=== PATIENT | male | born 1960 | race Caucasian/White ===

== ENCOUNTER → 2020-01-14 09:50 | Outpatient (CLI) | payer OTHER, SELFPAY ==
--- NOTE | ~2020-01-14 | US_ITS ---
EXAMINATION: US abdomen complete EXAM DATE: 01/14/2020 10:23 INDICATION: R10.12 - Left upper quadrant pain . TECHNIQUE: Multiple grayscale and Doppler images of the complete abdomen were obtained (by a technolo gist who performed the scan) and subsequently reviewed. There is no prior study for comparison. FINDINGS: The abdominal aorta is normal in caliber. Visualized portion IVC is patent. The pancreatic head a nd body are normal in appearance. The pancreatic tail is not visualized. The liver has normal echogenicity and contour. There are no focal liver lesions identified. There is no evidence of intrahepatic biliary duct dilation. Portal venous flow was seen in the hepatopedal , normal direction and has normal Doppler waveform. Common bile duct measures 4 mm, which is normal. The gallbladder wall is normal in thickness, with ex pected amount of distention. No sonographic evidence of pericholecystic fluid. No cholelithiasis. T here is a 5 mm gallbladder polyp not likely clinically significant. Technologist performing exam rep orts patient did not demonstrate sonographic Coulter's sign. Please note that this sign is less relia ble in patients who have received pain medication. Right kidney: There is normal contour and echogenicity. It measures 10.3 x 4.8 x 4.2 centimeters. There are no focal renal lesions identified. There is no hydronephrosis. Left kidney: There is normal contour and echogenicity. It measures 10.9 x 5.6 x 4.7 centimeters. T here are no focal renal lesions identified. There is no hydronephrosis. The spleen measures 9.8 centimeters and is morphologically normal. IMPRESSION: 1. Small gallbladder polyp not likely clinically significant. Reviewed, dictated and finalized at location B. UTIVE PASTRY CHEF
== END ==
PROVIDERS: Visit Provider Nurse Practitioner Family
DX: R10.12 Left upper quadrant pain (principal); K82.4 Cholesterolosis of gallbladder
CPT/HCPCS: 76700

== ENCOUNTER 2020-01-31 08:30 | Outpatient (RCR) | payer OTHER, SELFPAY ==
--- NOTE | 2019-12-24 10:55 | PTOPEVAL ---
Thank you for referring Sean Wagner to [facility].? The patient is scheduled to be seen for therapy? 2 x/week for 5 weeks. Please review, sign, date and return this plan of care LANEY. I agree with and certify that the following plan of care is medically necessary. Referring Physician Date Attending Provider: Duane Smith MD *PT Outpatient Evaluation Start: 12/24/19 09:51 Freq: Status: Active Protocol: Document 12/24/19 09:49 NOHELIA (Rec: 12/24/19 10:42 NOHELIA [id number]) Therapy Assessment Status Assessment Status Assessment Status Evaluation Outpatient Past Medical History Past Medical History Source of Past Medical History Patient,Recalled from Previous Visit, Confirmed with Patient /Family Cardiovascular History Hx Hypercholesterolemia Yes Hx Hypertension Yes Gastrointestinal History Hx Gastroesophageal Reflux Disease Yes Endocrine History Hx Diabetes Yes Evaluation Information Problem Diagnosis left shoulder pain Onset Sep 2019 Cause none Subjective Information Reports he has been having Query Text:As Reported By Patient/ left shoulder pain since Family September. He reports the pain started in the left shoulder and progressed into the left arm. HE reports tingling into the lateral and vegetable thinner upper arm into the left forearm region. Prolonged sitting use of computer or driving, arm hanging at rest, lifting and carrying objects. Denies increased pain with reaching motion. Denies pain with sleeping. He received an injection of his shoulder with improved symptoms. He does not perform a regular fitness program or stretching program. He will occasionally walk the dogs. Diagnostic Tests X-Rays For This Problem Yes Previous Treatments Previous Treatments For This Problem no Pain Assessment Timing of Pain Assessment Timing of Pain Assessment Assessment Pain Scale Pain Scale Used Numeric (1 - 10) Self Report Pain Assessment Left Shoulder(s) Reported Pain Level 5 Pain Description Aching,Radiating,Tingling Pain Frequency
--- NOTE | 2020-01-11 10:06 | PCPTNOTE ---
Patient called & cancelled scheduled appointment this date due to possible covid exposure.
--- NOTE | 2020-01-23 11:14 | PCPTNOTE ---
Patient called & cancelled scheduled appointment this date due to no reason provided. His re-eval has been rescheduled for 01/31/20.
--- NOTE | 2020-01-31 09:24 | PTOPEVAL ---
Thank you for referring Sean Wagner to [facility]. Pt has been seen for 7 therapy visits to address his shoulder impairments. He is indep with his HEP at this time. He verbalizes understanding of proper UE position with daily task. He has reached maximal potential with skilled therapy services at this time. He has achieved 90% of his therapy goals at this time. DC skilled therapy services. Please review, sign, date and return this plan of care LANEY. I agree with and certify that the following plan of care is medically necessary. Referring Physician Date Attending Provider: Duane Smith MD Referring Provider: *PT Outpatient Evaluation Start: 12/24/19 09:51 Freq: Status: Active Protocol: Document 01/31/20 08:31 NOHELIA (Rec: 01/31/20 09:12 [facility] [id number]) Therapy Assessment Status Assessment Status Assessment Status Re-evaluation/Discharge Note Evaluation Information Problem Diagnosis left shoulder pain Onset Sep 2019 Cause none Additional Evaluation Detail Reports he has been having left shoulder pain since September. Subjective Information He reports improved and Query Text:As Reported By Patient/ function of his left UE. Randy Family any numbness or tingling of left UE/hand region. Reports improved cynthia wtih driving. Cont to have discomfort with prolonged sitting at the computer for >30 min, but the intensity is not as bad. Denies increased pain with reaching motion. Denies pain with sleeping. He is performing his HEP without difficulty. Pain Assessment Timing of Pain Assessment Timing of Pain Assessment Re-assessment Pain Scale Pain Scale Used Numeric (1 - 10) Self Report Pain Assessment Left Shoulder(s) Reported Pain Level 0 Pain Description Aching Lowest Pain Intensity 0 Greatest Pain Intensity 1 Pain Score Pain Score 0: Self Report Interventions Used Pain Relief Interventions Used By Exercise Patient Upper Extremity Range of Motion Scapular/ Shoulder Range of Motion Right Scapular: Retraction Normal Scapular: Protraction Normal Scapular Downward Rotation Normal Scapular Upward Rotation Normal Shoulder Flexion - Active 160 Shoulder Extension - Active 50 Shoulder Abduction - Active 162 Shoulder Medial Rotation - Active 73 Shoulder Medi
== END 2020-03-10 08:08 | disposition home or self-care (01) ==
LOC: ANHPT 08:30
PROVIDERS: PCP Family Medicine; Visit Provider Orthopaedic Surgery
DX: M75.42 Impingement syndrome of left shoulder (principal)
CPT/HCPCS: 97035; 97110; 97140; 97161

== ENCOUNTER 2020-05-05 13:56 | Outpatient (CLI) | payer OTHER, SELFPAY | END 2020-05-05 13:57 | disposition home or self-care (01) | LOC: ANHCOVIDVC 13:56 | PROVIDERS: PCP Family Medicine | DX: Z23 Encounter for immunization (principal) | CPT/HCPCS: 0001A; 91300 ==

== ENCOUNTER 2020-05-26 13:57 | Outpatient (CLI) | payer OTHER, SELFPAY | END 2020-05-26 13:58 | disposition home or self-care (01) | LOC: ANHCOVIDVC 13:57 | PROVIDERS: PCP Family Medicine | DX: Z23 Encounter for immunization (principal) | CPT/HCPCS: 0002A; 91300 ==

== ENCOUNTER → 2020-07-03 11:20 | Outpatient (CLI) | payer OTHER, SELFPAY ==
--- NOTE | ~2020-07-03 | XR_ITS ---
XR lumbar spine 2-3V DATE: 07/03/2020 11:43 INDICATION: Low back pain TECHNIQUE: AP, lateral, coned lateral lumbosacral standing views COMPARISON: None FINDINGS: There is minimal anterolisthesis at L4-5 due to degenerative change at the apophyseal joint s. There is mild to moderate degenerative disease at L1-2, L4-5 and L5-S1. No fracture or bone destruction is evident. The included T11-L5 pedicles are intact. The sacroiliac joints appear normal. Abdominal aortic calcification is noted. IMPRESSION: Mild/moderate degenerative disc disease Reviewed, dictated and finalized at location A.
== END ==
PROVIDERS: PCP Family Medicine; Visit Provider Physician Assistant
DX: M54.5 Low back pain (principal); M51.36 Other intervertebral disc degeneration, lumbar region
CPT/HCPCS: 72100

== ENCOUNTER → 2020-07-05 01:04 | Outpatient (CLI) | payer OTHER, SELFPAY ==
[2020-07-05 19:44] LABS: SARS-CoV-2 RNA PCR Negative
== END ==
PROVIDERS: PCP Family Medicine; Visit Provider Internal Medicine Gastroenterology
DX: Z01.812 Encounter for preprocedural laboratory examination (principal); Z20.822 Contact with and (suspected) exposure to COVID-19
CPT/HCPCS: C9803; U0003; U0005

== ENCOUNTER 2020-07-09 02:50 | Day surgery (SDC) | payer OTHER, SELFPAY ==
[2020-07-02 10:18] VITALS: BMI 31.9
--- NOTE | 2020-07-08 15:34 | WPDANESEPPF ---
Anes - Initial Pre Proc Eval Procedure: Operation Date: 07/09/20 08:00 Proposed Procedures p Screening Colonoscopy - Rafita Mcknight MD Date/Time: 07/08/20 15:34 Surgeon: Rafita Mcknight MD Pre Op Diagnosis: neoplasm screening, family hx colon CA Patient Data Age: 60 Gender: M Height: 1.8 m Weight: 104 kg Allergies Allergy/AdvReac Type Severity Reaction Status Date / Time SALLY Inhibitors Allergy Unknown Unknown Verified 07/09/20 06:51 atenolol Allergy Unknown cough Verified 07/09/20 06:51 chlorthalidone [Tenoretic] Allergy Unknown cough Verified 07/09/20 06:51 Home Medications Medication Instructions Recorded Confirmed Type aspirin 81 mg tablet,delayed 81 mg PO DAILY 01/23/19 07/03/20 History release multivitamin 1 tablet PO DAILY 01/23/19 07/03/20 History indapamide 1.25 mg tablet See Rx Instructions .ROUTE 11/02/19 07/03/20 Rx .COMPLEX #90 tablet valsartan 80 mg tablet See Rx Instructions .ROUTE 11/02/19 07/03/20 Rx .COMPLEX #90 tablet blood sugar diagnostic #100 ea 02/25/20 07/03/20 Rx lancets 30 gauge #100 ea 02/25/20 07/03/20 Rx simvastatin 40 mg tablet See Rx Instructions .ROUTE 03/24/20 07/03/20 Rx .COMPLEX #90 tablet dulaglutide 1.5 mg/0.5 mL See Rx Instructions .ROUTE 03/31/20 07/03/20 Rx subcutaneous pen injector .COMPLEX #6 syringe metformin 500 mg tablet,extended 2,000 mg PO DAILY #360 tablet 04/09/20 07/03/20 Rx release 24 hr pen needle, diabetic 29 gauge x #100 ea 04/09/20 07/03/20 Rx 1/2 insulin glargine U-300 conc 300 15 unit SUBCUT DAILY #4.5 ml 05/14/20 07/03/20 Rx unit/mL (1.5 mL) subcutaneous pen pioglitazone 30 mg tablet 30 mg PO DAILY #90 tablet 05/16/20 07/03/20 Rx methylprednisolone 4 mg tablets in See Rx Instructions PO PER PKG DIR 07/03/20 07/03/20 Rx a dose pack #21 ea Patient hx anesthesia problems: none Family hx anesthesia problems: none PMFSH Past Medical History Medical History BMI 30.0-30.9,adult Cataract right eye Fatty liver GERD (gastroesophageal reflux disease) Hemoglobin A1c between 7.0% and 9.0% A1C 09/20/19 was 7.3 HLD (hyperlipidemia) HTN (hypertension), benign Obesity Subacromial impingement of left shoulder Type 2 diabetes mellitus with hyperglycemia Surgical History Surgical History Status post arthroscopy of left knee Dr. Smith Status post arthroscopy of right knee Dr. Smith Family History Family History Mother Diabetes mellitus Sibling Diabetes mellitus Hypertension Sibling Hypertension Family history of diabetes mellitus in first degree relative Mother Family history of diabetes mellitus in first degree relative Social History Social History Smoking status: Never smoker Second hand tobacco smoke exposure: No Alcohol intake: current Drinks per week: 1 Substance use: never Substance use type: does not use Living arrangements: with family Gender identity (if verbalized by the patient): Male Spiritual care concerns: No Anes - Eval Final PreProcedure Day of Procedure 07/08/20 15:34 Patient weight: obese Heart: regular rate and rhythm Lungs: clear to auscultation and normal air movement Airway: Mallampati scale class II Neurological: alert and oriented Last oral intake: >/= 8 hours ASA classification: III Emergent: no Anesthetic plan: proceed Anesthesia type and monitoring: general GIVS Informed Consent: The patient's anesthetic plan and its attendant risks and benefits were discussed with the patient/family/POA. Questions were solicited and answers provided to the satisfaction of the patient/family/POA.
[2020-07-09 06:54] VITALS: BP 136/84; PULSE 78; RESP 20; TEMP 36.3; O2SAT 96
--- NOTE | 2020-07-09 06:57 | PM.HPGS ---
History of Present Illness History of Present Illness Consent: Risks, benefits, and alternatives have been discussed and questions answered. Patient agrees to proceed with procedure. Chief complaint: neoplasm screening, family hx colon CA Narrative: Sean Wagner is a 60 year old male here for colon cancer screening. He does have a family history of colon cancer Review of Systems Review of Systems: All systems reviewed & are unremarkable except as noted in HPI and below PMFSH Past Medical History Medical History BMI 30.0-30.9,adult Cataract right eye Fatty liver GERD (gastroesophageal reflux disease) Hemoglobin A1c between 7.0% and 9.0% A1C 09/20/19 was 7.3 HLD (hyperlipidemia) HTN (hypertension), benign Obesity Subacromial impingement of left shoulder Type 2 diabetes mellitus with hyperglycemia Surgical History Surgical History Status post arthroscopy of left knee Dr. Smith Status post arthroscopy of right knee Dr. Smith Family History Family History Mother Diabetes mellitus Sibling Diabetes mellitus Hypertension Sibling Hypertension Family history of diabetes mellitus in first degree relative Mother Family history of diabetes mellitus in first degree relative Social History Social History Smoking status: Never smoker Second hand tobacco smoke exposure: No Alcohol intake: current Drinks per week: 1 Substance use: never Substance use type: does not use Living arrangements: with family Gender identity (if verbalized by the patient): Male Spiritual care concerns: No Meds Home Medications and Allergies Home Medications Medication Instructions Recorded Confirmed Type aspirin 81 mg tablet,delayed 81 mg PO DAILY 01/23/19 07/03/20 History release multivitamin 1 tablet PO DAILY 01/23/19 07/03/20 History indapamide 1.25 mg tablet See Rx Instructions .ROUTE 11/02/19 07/03/20 Rx .COMPLEX #90 tablet valsartan 80 mg tablet See Rx Instructions .ROUTE 11/02/19 07/03/20 Rx .COMPLEX #90 tablet blood sugar diagnostic #100 ea 02/25/20 07/03/20 Rx lancets 30 gauge #100 ea 02/25/20 07/03/20 Rx simvastatin 40 mg tablet See Rx Instructions .ROUTE 03/24/20 07/03/20 Rx .COMPLEX #90 tablet dulaglutide 1.5 mg/0.5 mL See Rx Instructions .ROUTE 03/31/20 07/03/20 Rx subcutaneous pen injector .COMPLEX #6 syringe metformin 500 mg tablet,extended 2,000 mg PO DAILY #360 tablet 04/09/20 07/03/20 Rx release 24 hr pen needle, diabetic 29 gauge x #100 ea 04/09/20 07/03/20 Rx 1/2 insulin glargine U-300 conc 300 15 unit SUBCUT DAILY #4.5 ml 05/14/20 07/03/20 Rx unit/mL (1.5 mL) subcutaneous pen pioglitazone 30 mg tablet 30 mg PO DAILY #90 tablet 05/16/20 07/03/20 Rx methylprednisolone 4 mg tablets in See Rx Instructions PO PER PKG DIR 07/03/20 07/03/20 Rx a dose pack #21 ea Allergies Allergy/AdvReac Type Severity Reaction Status Date / Time SALLY Inhibitors Allergy Unknown Unknown Verified 07/09/20 06:51 atenolol Allergy Unknown cough Verified 07/09/20 06:51 chlorthalidone [Tenoretic] Allergy Unknown cough Verified 07/09/20 06:51 Vital Signs Vital Signs - 24 hr 07/09/20 06:54 Temperature 36.3 C L Pulse Rate 78 Respiratory Rate 20 Blood Pressure 136/84 Pulse Oximetry 96 Exam Resp: Auscultation: clear to auscultation bilaterally Cardio: Rate: regular rate Rhythm: regular rhythm GI: GI Palp: Yes Soft to palpation and No Tenderness to palpation present (GI) Assessment and Plan Assessment and plan (1) Colon cancer screening: Code(s): Z12.11 - Encounter for screening for malignant neoplasm of colon Status: Acute Assessment and Plan: Colonoscopy with possible biopsy or polypectomy or cautery or injection of substances.
[2020-07-09 07:08] LABS: Glucose Point of Care 132 mg/dl (65-105)
[2020-07-09] MEDS: LACTATED RINGERS 1,000 ML 150 ML IV CONT (07:08)
[2020-07-09 08:10] VITALS: BP 121/88; PULSE 72; RESP 21; O2SAT 100
[2020-07-09 08:20] VITALS: BP 126/78; PULSE 70; RESP 17; O2SAT 99
[2020-07-09 08:30] VITALS: BP 126/84; PULSE 68; RESP 23; O2SAT 99
== END 2020-07-09 08:42 | disposition home or self-care (01) ==
PROVIDERS: PCP Family Medicine; Visit Provider Internal Medicine Gastroenterology
PROC: 0DJD8ZZ Inspection of Lower Intestinal Tract, Via Natural or Artificial Opening Endoscopic (ICD-10-PCS; CPT 45378; principal; 2020-07-09 08:00)
DX: Z12.11 Encounter for screening for malignant neoplasm of colon (principal); K57.30 Diverticulosis of large intestine without perforation or abscess without bleeding; Z80.0 Family history of malignant neoplasm of digestive organs; I10 Essential (primary) hypertension; E11.9 Type 2 diabetes mellitus without complications; E78.5 Hyperlipidemia, unspecified; K21.9 Gastro-esophageal reflux disease without esophagitis; K76.0 Fatty (change of) liver, not elsewhere classified; Z79.82 Long term (current) use of aspirin; Z79.84 Long term (current) use of oral hypoglycemic drugs; Z79.4 Long term (current) use of insulin
CPT/HCPCS: 45378; 82948; C9803; J2704; J7120; U0003; U0005

== ENCOUNTER → 2020-08-09 09:16 | Outpatient (CLI) | payer OTHER, SELFPAY ==
--- NOTE | ~2020-08-09 | MR_ITS ---
EXAMINATION: MR lumbar spine wo con DATE: 08/09/2020 09:55 INDICATION: Lumbar radiculopathy. Low back pain. TECHNIQUE: Magnetic resonance imaging (MRI) of the lumbar spine was performed without intravenous con trast. Sequences included sagittal T2-weighted FSE, sagittal T2-weighted FS FSE, sagittal T1-weighted FSE, and axial T2-weighted FSE. COMPARISON: Lumbar spine radiographs 07/03/2020 FINDINGS: There is 4 degrees levocurvature of lumbar spine. There is 3 mm anterolisthesis of L4 on L5 . There is mild chronic anterior wedging of T11 and T12 vertebral bodies. There is mildly decreased d isc height at L4-L5 and L5-S1. The distal spinal cord signal intensity is normal. The conus medullari s is at L1. The following disc levels are specifically discussed: L1-L2: The disc does not extend beyond the endplate margin. There is mild bilateral facet joint osteo arthritis. There is no neural foraminal stenosis. There is no central canal stenosis. L2-L3: The disc does not extend beyond the endplate margin. There is mild bilateral facet joint osteo arthritis. There is no neural foraminal stenosis. There is no central canal stenosis. L3-L4: There is a left foraminal protrusion. There is moderate bilateral facet joint osteoarthritis. There is mild left neural foraminal stenosis. There is no central canal stenosis. L4-L5: The disc is bulging and has an annular fissure. There is severe bilateral facet joint osteoart hritis with large synovial cyst from the left facet joint with mass effect on at least the left L5 ne rve root. There is moderate bilateral neural foraminal stenosis. There is moderate central canal sten osis, worse on the left. L5-S1: The disc is bulging and has an annular fissure. There is severe bilateral facet joint osteoart hritis. There is mild bilateral neural foraminal stenosis. There is mild central canal stenosis. IMPRESSION: 1. Moderate lumbar spondylosis. Of note, a large synovial cyst at L4-L5 causes moderate central canal stenosis that is worse on the left with mass effect on at least the left L5 nerve root. Reviewed, dictated and finalized at location A. IMPRESSION: 1. Moderate lumbar spondylosis. Of note, a large synovial cyst at L4-L5 causes moderate central canal stenosis that is worse on the left with mass effect on a t least the left L5 nerve root.
== END ==
PROVIDERS: PCP Family Medicine
DX: M54.16 Radiculopathy, lumbar region (principal)
CPT/HCPCS: 72148

== ENCOUNTER → 2021-03-03 07:11 | Outpatient (CLI) | payer OTHER, SELFPAY ==
[2021-03-03 15:14] LABS: Influenza Control Positive
[2021-03-03 21:03] LABS: SARS-CoV-2 RNA PCR Positive
== END ==
PROVIDERS: PCP Family Medicine; Visit Provider Physician Assistant
DX: U07.1 COVID-19 (principal); R05.9 Cough, unspecified
CPT/HCPCS: 87804; C9803; U0003; U0005

== ENCOUNTER → 2021-03-10 09:47 | Outpatient (CLI) | payer OTHER, SELFPAY ==
--- NOTE | ~2021-03-10 | MMUS_ITS ---
EXAMINATION: MM diagnostic mammo unilat RT, US breast RT limited HISTORY: Palpable right breast lump TECHNIQUE: Additional 3-D tomosynthesis images of the right breast were performed . CAD analysis was submitted and interpreted. High resolution Limited right breast ultrasound was performed. COMPARISON: None BREAST PARENCHYMAL COMPOSITION: Breast composition is almost entirely fatty FINDINGS: MAMMOGRAPHIC FINDINGS: There are no suspicious masses, calcifications or architectural distortion in the right breast to sug gest malignancy. ULTRASOUND: Limited right breast ultrasound: There is an oval hyperechoic circumscribed mass located superficiall y in the right breast at 10:00, 5 cm from the nipple corresponding to the palpable abnormality. The s onographic characteristics are compatible with a benign lipoma corresponding to the mammographic find ings. No other discrete mass identified. IMPRESSION: 1. No evidence for malignancy in the right breast. Benign lipoma in the area of palpable concern. 2. Routine yearly screening mammogram and regular clinical breast examination are recommended. BI-RADS Category 2: Benign finding(s). Reviewed, dictated and finalized at location A. F TALLY CLERK IMPRESSION: 1. No evidence for malignancy in the right breast. Benign lipoma in the area of palpable concern. 2. Routine yearly screening mammogram and regular clinical breast examination a re recommended. BI-RADS Category 2: Benign finding(s).
== END ==
PROVIDERS: PCP Family Medicine; Visit Provider Nurse Practitioner Family
DX: N63.10 Unspecified lump in the right breast, unspecified quadrant (principal)
CPT/HCPCS: 76642; 77065